=== PATIENT | female | born 1980 | race African-American/Black ===

== ENCOUNTER → 2016-03-07 | Outpatient (CLI) | payer BC ==
[~2016-03-07] MED LIST: ABILIFY2 MG PO; AMITRIPTYLINE H25 M1 PO; ATIVAN 0.50.5 MG/TAB PO; CARAFATE PO; CARAFATE1 GM PO; CELEXA40 MG PO; CITALOPRAM40 MG PO; DEPO-PROVER150 MG/M1 IM; DESYREL 100MG100 MG PO; DEXILANT60 MG PO; DOXYCYCLINE 10100 MG PO; EPA/GLA1 SGL PO; ERRIN0.35 MG PO; GEODON 20 MG20 MG PO; HYDROCODONE/APAP; HYOMAX-SR0.375 MG PO; KAPIDEX60 MG PO; KLONOPIN 1MG1 MG PO; LAMICTAL 100MG100 MG PO; LOESTRIN 24 FE1 TAB PO; MULTIPLE VITAMI1 CAP PO; NEXIUM PO; NORCO 325 MG-51 TAB PO; NORCO 325 MG-7.1 TAB PO; NORTRIPTYLINE25 M1 PO; PERCOCET 500 MG1 TAB PO; PREDNISONE10 MG PO; PRENATAL1 TA1 PO; PRIL40 PO; PRILOSEC40 MG PO; PRILOTC; SLOW FE45 MG PO; SYNTHROID 0.0.025 MG PO; SYNTHROID0.05 MG PO; Thyroxine; VICODIN 5/5001 UDTAB PO; ZOLOFT 100MG100 MG PO; ZOLOFT 25MG25 MG
== END ==
LOC: BHSO 09:18
DX: F31.81 Bipolar II disorder (principal)

== ENCOUNTER → 2016-04-05 | Outpatient (CLI) | payer BC | LOC: BHSO 08:59 | DX: F43.10 Post-traumatic stress disorder, unspecified (principal) ==

== ENCOUNTER 2016-04-07 22:52 | Emergency (ER) | payer BC ==
[~2016-04-07] VITALS: Ht 165.1 cm; Wt 111.4 kg
[~2016-04-07 22:52] MED LIST changes: -GEODON 20 MG20 MG PO; -KLONOPIN 1MG1 MG PO
[2016-04-07 22:59] VITALS: TEMP 98.2
[2016-04-07 23:50] LABS: PH 5 (5-8); SQUAMOUS EPITHELIAL 0-2 /hpf; URINE APPEARANCE Clear; URINE BACTERIA None Seen /hpf; URINE BILIRUBIN Negative (NEGATIVE); URINE BLOOD Negative (NEGATIVE); URINE COLOR Yellow; URINE GLUCOSE Negative (NEGATIVE); URINE KETONE Negative (NEGATIVE); URINE RBC 0-2 /hpf; URINE UROBILINOGEN Negative (NEGATIVE); URINE WBC 0-2 /hpf
[2016-04-08] MEDS ORDERED: KLONOPIN 1MG1 MG PO (00:11)
[2016-04-08] MEDS ORDERED: GEODON 20 MG20 MG PO (00:11)
[2016-04-08 00:13] LABS: BASO % 0.5 % (0.0-2.0); EOS # 0.3 (0.0-0.7); EOS % 3.3 % (0-4.0); GRAN # 4.7 (1.4-6.5); GRAN % 59.1 % (42.2-75.2); LYMPH # 2.3 (1.2-3.4); LYMPH % 28.4 % (20.0-51.0); MEAN CELL VOLUME 84 fl (80.0-100.0); MEAN CORPUSCULAR HGB CONC 32 g/dl (33.0-37.0); MEAN PLATELET VOLUME 11.1 fl (7.4-10.4); MONO # 0.7 (0.1-0.6); MONO % 8.4 % (1.7-9.3); PLATELET COUNT 332 K/mm3 (130-400); RED BLOOD COUNT 4.32 M/mm3 (4.10-5.30); REDCELL DISTRIBUTION WIDTH-CV 15.8 % (11.5-14.5)
[2016-04-08 00:16] LABS: HEMATOCRIT 36.4 % (37.0-47.0); HEMOGLOBIN 11.5 g/dl (12.5-16.0); MEAN CORPUSCULAR HEMOGLOBIN 27 pg (27.0-31.0)
[2016-04-08 00:43] LABS: ALBUMIN 4.2 gm/dL (3.5-5.0); BILIRUBIN,TOTAL 0.6 mg/dL (0.0-1.0); CALCIUM 9.2 mg/dL (8.4-10.2); CREATININE, serum 0.63 mg/dL (0.52-1.25); POTASSIUM 4.2 mmol/L (3.4-5.0); TOTAL PROTEIN 8.1 gm/dL (6.4-8.2)
[2016-04-08 01:33] LABS: C-REACTIVE PROTEIN 1.5 mg/dL (0.0-0.9)
[2016-04-08] MEDS ORDERED: NORCO 325 MG-51 TAB PO (03:06)
[2016-04-08 03:45] VITALS: BP 111/57; PULSE 54
== END 2016-04-08 03:51 | disposition home or self-care (01) ==
LOC: COL.ER 22:52
PROVIDERS: Emergency Medicine; Nurse Practitioner
DX: R10.31 Right lower quadrant pain (principal); R10.11 Right upper quadrant pain
CPT/HCPCS: J1170; J2405; J7030; Q9967

== ENCOUNTER → 2016-05-05 | Outpatient (CLI) | payer BC ==
[~2016-05-05] MED LIST changes: +GEODON 20 MG20 MG PO; +KLONOPIN 1MG1 MG PO
== END ==
LOC: BHSO 09:12
DX: F31.81 Bipolar II disorder (principal)

== ENCOUNTER → 2016-07-07 | Outpatient (CLI) | payer BC | LOC: BHSO 09:21 | DX: F31.81 Bipolar II disorder (principal) ==

== ENCOUNTER → 2016-08-12 | Outpatient (CLI) | payer BC | LOC: BHSO 09:20 | DX: F43.10 Post-traumatic stress disorder, unspecified (principal) ==